=== PATIENT | female | born 1980 | race American Indian/Alaskan Native ===

== ENCOUNTER 2016-10-06 22:31 | Emergency (ER) | payer BC ==
[2016-10-06 23:04] VITALS: BP 133/92
== END 2016-10-07 05:54 | disposition left against medical advice (07) ==
LOC: ED 22:31
DX: T23.001A Burn of unspecified degree of right hand, unspecified site, initial encounter (principal); X08.8XXA Exposure to other specified smoke, fire and flames, initial encounter; Y93.89 Activity, other specified; Y92.89 Other specified places as the place of occurrence of the external cause; Y99.8 Other external cause status; Z53.21 Procedure and treatment not carried out due to patient leaving prior to being seen by health care provider